=== PATIENT | male | born 1990 | race Caucasian/White ===

== ENCOUNTER 2018-12-03 01:59 | Outpatient (CLI) | payer MEDICAID, SELFPAY ==
[2018-12-03 11:12] LABS: ALT 38 U/L (12-78); AST 18 U/L (15-37); Albumin 4.3 g/dL (3.4-5.0); Alkaline Phosphatase 67 U/L (46-116); Anion Gap 10.7 mmol/L (3-11); BUN 17 mg/dL (7-18); Bilirubin, Total 0.5 mg/dL (0.2-1.0); CO2 29.3 mmol/L (21.0-32.0); CREATININE 0.84 mg/dL (0.70-1.30); Calcium 9.5 mg/dL (8.5-10.1); Chloride 102 mmol/L (98-107); Cholesterol 221 mg/dL (50-200); Glucose 100 mg/dL (70-100); HDL Cholesterol 30 mg/dL (40-60); LDL CHOLESTEROL 116 mg/dL (<100); Sodium 142 mmol/L (136-145); Total Protein 7.4 g/dL (6.4-8.2); Triglyceride 360 mg/dL (30-150)
== END 2018-12-03 02:19 ==
DX: R63.8 Other symptoms and signs concerning food and fluid intake (principal); E78.5 Hyperlipidemia, unspecified; Z00.00 Encounter for general adult medical examination without abnormal findings
CPT/HCPCS: 36415; 80053; 80061; 83721

== ENCOUNTER 2020-04-20 02:59 | Outpatient (CLI) | payer MEDICAID, SELFPAY ==
[2020-04-20 12:49] LABS: ALT 25 U/L (16-63); AST 16 U/L (15-37); Albumin 4.6 g/dL (3.4-5.0); Alkaline Phosphatase 50 U/L (46-116); Anion Gap 11.2 mmol/L (3-11); BUN 15 mg/dL (7-18); Bilirubin, Total 0.4 mg/dL (0.2-1.0); CO2 27.8 mmol/L (21.0-32.0); CREATININE 0.88 mg/dL (0.70-1.30); Calcium 9.6 mg/dL (8.5-10.1); Calculated LDL 107 mg/dL (<100); Chloride 103 mmol/L (98-107); Cholesterol 163 mg/dL (<200); Glucose 88 mg/dL (74-106); HDL Cholesterol 34 mg/dL (40-60); Potassium 3.9 mmol/L (3.5-5.1); Sodium 142 mmol/L (136-145); Total Protein 7.4 g/dL (6.4-8.2); Triglyceride 110 mg/dL (<150)
== END 2020-04-20 03:19 ==
DX: E78.2 Mixed hyperlipidemia (principal); K21.9 Gastro-esophageal reflux disease without esophagitis; Z00.00 Encounter for general adult medical examination without abnormal findings
CPT/HCPCS: 36415; 80053; 80061

== ENCOUNTER 2022-12-27 08:06 | Emergency (ER) | payer SELFPAY ==
[2022-12-27 08:11] VITALS: BP 143/87; PULSE 89; RESP 14; TEMP 36.8; O2SAT 97
--- NOTE | 2022-12-27 08:11 | W.ED.GENAD ---
Discharge Plan Disposition Patient Disposition: Home Condition: Stable Discharge Details Clinical Impression: Acute right flank pain Primary Care Provider: Rustam Diggs ED Provider: Tonny Cadet Home Meds and New Rx's Prescriptions: Continued fluticasone propionate 50 mcg/actuation spray,suspension 2 spray NS DAILY PRN (Reason: nasal congestion) Qty: 1 6RF Rx Instructions: 2 spray per day total, alternating nares 1 spray (left) in AM &1 spray (right) in PM Discharge Instructions Instructions: Flank Pain (ED) Additional Instructions: Please continue to take [id number] ibuprofen 800 mg every 8 hours as needed for discomfort. Monitor symptoms and follow-up with your primary care provider if not fully improving and return to the emergency department for any new or significant worsening of your symptoms. Referrals: Rustam Diggs, TELEMETRY RN [Primary Care Provider] - (As needed for reassessment) Medical Decision Making Patient presenting to the emergency department for chief complaint of right flank pain. Patient reports this is been intermittent over the past 4 to 5 days and was severe this morning. Patient took ibuprofen about an hour prior to arrival and states significant improvement of discomfort. Patient denies any injury or trauma, denies any rotational or pain with movement, denies all other symptoms. Physical exam shows very mild right CVA tenderness otherwise very benign exam. I suspect potential kidney stone versus muscular strain. We will plan on performing CT imaging and labs for rule out of kidney stone. Given that patient states very little pain at this time will hold off on any medications. Review of labs does show a elevated WBC of 12.82, neutrophils and monocytes also elevated. CMP only shows a mildly elevated glucose and total protein. Although the labs are within normal range. Reviewed urinalysis and shows high specific gravity but no blood or signs of infection. Review of CT imaging along with radiologist interpretation shows a right nephrolithiasis but no ureteral stone or hydronephrosis. There is mildly enlarged lymph nodes in the mesenteric which is nonspecific. Patient continues to remain pain-free so we will discharge patient with continued use of NSAIDs as needed for discomfort and follow-up with primary care as needed. After discussion of diagnosis and plan of care patient has no further needs, questions, or concerns and states clear understanding to return to the emergency department for any worsening symptoms. This documentation was generated using [employer] system, please disregard any oddities of phrase or misspellings. Imaging Data Radiologic Study: Attestation: I personally reviewed and interpreted this imaging study as follows: Imaging: CT Scan Radiologist's impression: Exam(s) a CT:CT renal colic wo Exam(s) CT RENAL COLIC WO EXAM: CT RENAL COLIC WO CLINICAL HISTORY: Right flank pain. TECHNIQUE: Imaging Protocol: Axial computed tomography images with coronal and sagittal reformatted images were created and reviewed. COMPARISON: No exams were available for comparison FINDINGS: ABDOMEN: Lung Bases: No acute infiltrate seen in the lung bases. Liver: Normal density. No measurable mass. Gallbladder and biliary tract: No radiodense calculus or biliary ductal dilation. Pancreas: Normal density, no abnormal calcifications or inflammatory process. Spleen: Normal. Kidneys: Normal size, contour and axis.There is a 3 mm nonobstructing stone in the midpole of the right kidney. There is no evidence of a ureteral stone or hydronephrosis. There is a 1.7 x 2.1 cm round homogeneously hypodense lesion in the midpole of the right kidney. It has Hounsfield units of 6. No follow-up is recommended. Adrenal glands: No mass is seen. Lymph nodes: There are mildly enlarged lymph nodes seen in the mesentery. Mild increased attenuation in the mesentery. Abdominal Aorta: Abdominal portion non-dilated. PELVIS: Bladder:Symmetric distention, no gross wall thickening. Bowel: No obstruction or bowel wall thickening. Appendix is unremarkable. Peritoneal cavity: No ascites, collection or mesenteric inflammatory response. No free air. Reproductive organs: Unremarkable as visualized. Bones: Within normal limits. Soft Tissues: There is a small fat containing umbilical hernia. IMPRESSION: 1. Right nephrolithiasis. No ureteral stone or hydronephrosis. 2. Mildly enlarged lymph nodes in the mesentery with mild mesenteric increased attenuation. This is nonspecific but may be seen with mesenteric adenitis. Please correlate clinically. 3. Findings were discussed with Tonny Cadet at 9:18 a.m. on 12/27/2022. Lab Data Lab results reviewed: Yes I reviewed the patient's lab results. Labs: Laboratory Tests Range/Units 12/27/22 12/27/22 12/27/22 08:40 08:44 08:44 WBC (4.4-10.8) 10^3/uL 12.82 H RBC (4.36-5.78) 10^6/uL 5.11 Hgb (13.5-17.5) g/dL 15.7 Hct (40.0-50.0) % 45.8 MCV (80-95) fL 90 MCH (27.0-33.0) pg 30.7 MCHC (32.0-36.0) % 34.3 RDW (11.8-14.1) % 12.1 Plt Count (130-400) 10^3/uL 232 MPV (8.0-11.0) fL 10.1 Immature Gran % 0.4 Neutrophils % 77.6 Lymphocytes % 13.3 Monocytes % 7.6 Eosinophils % 0.8 Basophils % 0.3 Nucleated RBC % (0.0-0.3) % 0.0 Absolute Neutrophils (1.2-6.7) 10^3/uL 9.95 H Absolute Lymphocytes (1.2-3.4) 10^3/uL 1.71 Absolute Monocytes (0.1-0.8) 10^3/uL 0.97 H Absolute Eosinophils (0.0-0.7) 10^3/uL 0.10 Absolute Basophils (0.0-0.2) 10^3/uL 0.04 Sodium (136-145) mmol/L 138 Potassium (3.5-5.1) mmol/L 4.4 Chloride (98-107) mmol/L 102 Carbon Dioxide (21.0-32.0) mmol/L 29.6 Anion Gap (3-11) mmol/L 6.4 BUN (7-18) mg/dL 16 Creatinine (0.70-1.30) mg/dL 0.8 Est GFR (CKD-EPI 2020) (mL/min/1.73m2) 119.84 Glucose (74-106) mg/dL 108 H Calcium (8.5-10.1) mg/dL 9.6 Total Bilirubin (0.2-1.0) mg/dL 0.6 AST (15-37) U/L 17 ALT (16-63) U/L 29 Alkaline Phosphatase (46-116) U/L 63 Total Protein (6.4-8.2) g/dL 8.4 H Albumin (3.4-5.0) g/dL 4.5 Urine Color (Yellow) Yellow Urine Clarity (Clear) Clear Urine pH (5-8) 5.5 Ur Specific [place] (1.005-1.025) >= 1.030 H Urine Protein (Negative) mg/dL Negative Urine Ketones (Negative) mg/dL Negative Urine Blood (Negative) Negative Urine Nitrite (Negative) Negative Urine Bilirubin (Negative) Negative Urine Urobilinogen (Up to 0.2) mg/dL 0.2 Ur Leukocyte Esterase (Negative) Negative Urine Glucose (Negative) mg/dL Negative HPI General Mode of arrival: ambulatory. Date/Time Provider Initiated Documentation: 12/27/22 08:10. Limitations to Documentation: no limitations. Information obtained by: patient and RN notes reviewed. History of Present Illness 32 year old M presents to the emergency department with the chief complaint of Right flank pain, described as moderate and severe, with intensity rated at 10. Quality is described as aching and sharp, and is localized to the back and right. Patient reports no radiation. Patient started experiencing this day(s) (5) and it has been intermittent. No relieving factors improve symptom(s), No exacerbating factors reported . Patient notes no other symptoms.. Patient did receive the following treatments prior to arrival, none Related Data Home Medications Medication Instructions Recorded Confirmed fluticasone propionate 50 2 spray NS DAILY PRN nasal 03/02/20 12/27/22 mcg/actuation nasal congestion ##1 spray,suspension Previous Rx's Medication Instructions Recorded fluticasone propionate 50 2 spray NS DAILY PRN nasal 03/02/20 mcg/actuation nasal congestion ##1 spray,suspension Allergies Allergy/AdvReac Type Severity Reaction Status Date / Time oxycodone Allergy Unknown Verified 12/27/22 08:16 General Stated Complaint: FlankPain LUIS: 3 Review of Systems Constitutional Constitutional: Denies chills, Denies fever(s) and Denies poor appetite ENT Ears, Nose, Mouth, and Throat: Denies neck pain Cardiovascular Cardiovascular: Denies chest pain and Denies dyspnea Respiratory Respiratory: Denies cough and Denies dyspnea Gastrointestinal Gastrointestinal: Reports as per HPI, Denies abdominal pain, Denies melena, Denies change in bowel habits, Denies constipation, Denies diarrhea, Denies nausea and Denies vomiting Genitourinary Genitourinary: Denies hematuria, Denies difficulty urinating, Denies dysuria and Reports flank pain Musculoskeletal Musculoskeletal: Reports back pain and Denies neck pain Integumentary/Breasts Skin/Breast: Denies rash [facility] All Active Problems (Updated 12/27/22 @ 09:30 by Tonny Cadet NP) Acute right flank pain (Acute) Encounter for annual physical exam (Acute) Hyperlipidemia (Chronic) Allergic rhinitis due to allergen (Chronic 10/06/16) Chronic rhinitis (Chronic 08/11/16) Gastroesophageal reflux disease without esophagitis (Chronic 01/23/18) 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 Javier Family History Mother Hyperlipidemia Father Hyperlipidemia Sister No problems noted. Maternal Grandfather Heart disease Hyperlipidemia Paternal Grandfather Heart disease Maternal Grandmother , 50 Stroke Paternal Grandmother No problems noted. Son No problems noted. Daughter No problems noted. Daughter No problems noted. Sister No problems noted. Social History Smoking/Tobacco Use Status: Never Second Hand Exposure: No Smoking risk assessment performed?: Yes Alcohol Intake: never Drug use: Never Substance use type: does not use Caregiver/Support person: No Housing: house Communication Needs: None Do you need help understanding health information?: Never Pets and animals: No Sexually active: Yes Do you think of yourself as: straight/heterosexual Current gender identity: male What is your relationship status?: How often do you talk on the phone with friends or family?: once per week How often do you get together with friends or relatives?: once per week How often do you attend mandaeism or pentecostal services?: 1-3 times per year Do you belong to any clubs or organized social groups?: no Panel score (0-1 are the most socially isolated patients): 0 What type of physical activity do you participate in: none and other Details: Work Duration: 15-30 minutes/day Frequency: 5-6 times per week Edith/Anglican: Evangelical Special edith needs: No Seatbelt use: always Helmet use: Yes Drive intox or ride w/intox dinkey driver: No Do you feel safe at home: Yes Do you feel safe in your relationship?: Yes Exam Const General: cooperative Orientation: alert, awake and oriented x3 Resp Effort & Inspection: normal respiratory effort and able to speak in complete sentences Auscultation: clear to auscultation bilaterally Cardio Rate: regular rate Rhythm: regular rhythm Heart Sounds: S1 normal and S2 normal General: CVA tenderness on the right (mild right) Back/Spine/Pelvis Back: CVA tenderness Thoracic/Lumbar Spine: thoracic and lumbar spine normal to inspection, No pain with thoraco-lumbar ROM, No paraspinal tenderness, No thoraco-lumbar ROM limited, No thoracic spinal tenderness and No lumbar spinal tenderness Neuro General: patient alert, patient awake, patient oriented x3, gait normal and moves all extremities
[2022-12-27 08:52] LABS: Abs Immature Grans 0.05 10^3/uL (0.0-0.06); Absolute Basophil Count 0.04 10^3/uL (0.0-0.2); Absolute Lymphocyte Count 1.71 10^3/uL (1.2-3.4); Absolute Monocyte Count 0.97 10^3/uL (0.1-0.8); Absolute Neutrophil Count 9.95 10^3/uL (1.2-6.7); Basophils % 0.3; Eosinophils % 0.8; HCT 45.8 % (40.0-50.0); HGB 15.7 g/dL (13.5-17.5); Immature Grans % 0.4; Lymphocytes % 13.3; MCH 30.7 pg (27.0-33.0); MCHC 34.3 % (32.0-36.0); MCV 90 fL (80-95); MPV 10.1 fL (8.0-11.0); Monocytes % 7.6; Neutrophils % 77.6; Platelet Count 232 10^3/uL (130-400); RBC 5.11 10^6/uL (4.36-5.78); RDW 12.1 % (11.8-14.1); RDW-SD 39.7 fL; WBC 12.82 10^3/uL (4.4-10.8)
[2022-12-27 08:54] LABS: Bilirubin Negative (Negative); Blood Negative (Negative); Clarity Clear (Clear); Glucose Negative (Negative); Ketones Negative (Negative); Leukocyte Esterase Negative (Negative); Nitrite Negative (Negative); Specific Gravity >= 1.030 (1.005-1.025); Urobilinogen 0.2 mg/dL (Up to 0.2); pH 5.5 (5-8)
--- NOTE | 2022-12-27 08:58 | DI.CT_ITS ---
Exam(s) CT RENAL COLIC WO EXAM: CT RENAL COLIC WO CLINICAL HISTORY: Right flank pain. TECHNIQUE: Imaging Protocol: Axial computed tomography images with coronal and sagittal reformatted images were created and reviewed. COMPARISON: No exams were available for comparison FINDINGS: ABDOMEN: Lung Bases: No acute infiltrate seen in the lung bases. Liver: Normal density. No measurable mass. Gallbladder and biliary tract: No radiodense calculus or biliary ductal dilation. Pancreas: Normal density, no abnormal calcifications or inflammatory process. Spleen: Normal. Kidneys: Normal size, contour and axis.There is a 3 mm nonobstructing stone in the midpole of the rig ht kidney. There is no evidence of a ureteral stone or hydronephrosis. There is a 1.7 x 2.1 cm roun d homogeneously hypodense lesion in the midpole of the right kidney. It has Hounsfield units of 6. No follow-up is recommended. Adrenal glands: No mass is seen. Lymph nodes: There are mildly enlarged lymph nodes seen in the mesentery. Mild increased attenuation in the mesentery. Abdominal Aorta: Abdominal portion non-dilated. PELVIS: Bladder:Symmetric distention, no gross wall thickening. Bowel: No obstruction or bowel wall thickening. Appendix is unremarkable. Peritoneal cavity: No ascites, collection or mesenteric inflammatory response. No free air. Reproductive organs: Unremarkable as visualized. Bones: Within normal limits. Soft Tissues: There is a small fat containing umbilical hernia. IMPRESSION: 1. Right nephrolithiasis. No ureteral stone or hydronephrosis. 2. Mildly enlarged lymph nodes in the mesentery with mild mesenteric increased attenuation. This is nonspecific but may be seen with mesenteric adenitis. Please correlate clinically. 3. Findings were discussed with Tonny Cadet at 9:18 a.m. on 12/27/2022. RADIATION DOSE DELIVERED: 892.2mGy.cm Total DLP DATA REPOSITORY: All CT scans at this facility are submitted to the National Radiology Data Registry (NRDR) Dose Index Registry (DIR) with the [employer] (ACR). RADIATION OPTIMIZATION: All CT scans at this facility use at least one of these dose optimization te chniques: automated exposure control; mA and/or kV adjustment per patient size (includes targeted exa ms where dose is matched to clinical indication); or iterative reconstruction.
[2022-12-27 09:02] LABS: ALT 29 U/L (16-63); AST 17 U/L (15-37); Albumin 4.5 g/dL (3.4-5.0); Alkaline Phosphatase 63 U/L (46-116); Anion Gap 6.4 mmol/L (3-11); BUN 16 mg/dL (7-18); Bilirubin, Total 0.6 mg/dL (0.2-1.0); CO2 29.6 mmol/L (21.0-32.0); CREATININE 0.8 mg/dL (0.70-1.30); Calcium 9.6 mg/dL (8.5-10.1); Chloride 102 mmol/L (98-107); Estimated GFR 119.84 (mL/min/1.73m2); Glucose 108 mg/dL (74-106); Potassium 4.4 mmol/L (3.5-5.1); Sodium 138 mmol/L (136-145); Total Protein 8.4 g/dL (6.4-8.2)
[2022-12-27 09:31] VITALS: BP 144/84; PULSE 88; RESP 14; O2SAT 98
== END 2022-12-27 09:37 | disposition home or self-care (01) ==
PROVIDERS: Emergency Provider Nurse Practitioner Family; PCP Nurse Practitioner Family
DX: R10.9 Unspecified abdominal pain (principal); N20.0 Calculus of kidney; R59.9 Enlarged lymph nodes, unspecified; D72.829 Elevated white blood cell count, unspecified; R73.9 Hyperglycemia, unspecified; R79.82 Elevated C-reactive protein (CRP); D72.821 Monocytosis (symptomatic)
CPT/HCPCS: 36415; 80053; 99284; 74176; 81003; 85025; 99283

== ENCOUNTER 2023-11-07 10:44 | Emergency (ER) | payer SELFPAY ==
[2023-11-07 10:47] VITALS: BP 147/92; PULSE 97; RESP 16; TEMP 37.1; O2SAT 99
--- NOTE | 2023-11-07 10:57 | ED.GENADUL_ITS ---
Discharge Plan Disposition Patient Disposition: Home Condition: Stable Discharge Details Clinical Impression: Laceration of finger Primary Care Provider: Unknown,Unknown ED Provider: Luz Elena Lemus Home Meds and New Rx's Prescriptions: New cephalexin 500 mg capsule 500 mg PO QID Qty: 20 0RF Continued fluticasone propionate 50 mcg/actuation spray,suspension 2 spray NS DAILY PRN (Reason: nasal congestion) Qty: 1 6RF Rx Instructions: 2 spray per day total, alternating nares 1 spray (left) in AM &1 spray (right) in PM Discharge Instructions Instructions: Finger Laceration (ED) Additional Instructions: keep dressing clean and dry for next 2-3 days, then can remove and wash wound daily with warm soapy water rinse well gently pat dry. Can apply thin layer of antibiotic ointment and dry dressing to protect. Monitor for and report signs of infection immediately including fever redness drainage increased pain Can use [id number] pain medication such as ibuprofen and/or acetaminophen as directed if needed for pain Return to the emergency department in 7 to 10 days for suture removal Your tetanus has been updated. You will also be given a prescription of antibiotics for infection prevention Referrals: Unknown,Unknown [Primary Care Provider] - (return to the ED for suture removal in 7-10 days) HPI General Mode of arrival: ambulatory . Date/Time Provider Initiated Documentation: 11/07/23 10:57 . Limitations to Documentation: no limitations . Information obtained by: patient . HPI Narrative: 3 cm laceration to index finger on a sharp knife. Bleeding controlled on arrival with pressure dressing. No other injury. No numbness or tingling distally. Full range of motion and strength. Related Data Home Medications Medication Instructions Recorded Confirmed fluticasone propionate 50 2 spray NS DAILY PRN nasal 03/02/20 11/07/23 mcg/actuation nasal congestion ##1 spray,suspension cephalexin 500 mg capsule 500 mg PO QID #20 caps 11/07/23 Previous Rx's Medication Instructions Recorded fluticasone propionate 50 2 spray NS DAILY PRN nasal 03/02/20 mcg/actuation nasal congestion ##1 spray,suspension cephalexin 500 mg capsule 500 mg PO QID #20 caps 11/07/23 Allergies Allergy/AdvReac Type Severity Reaction Status Date / Time oxycodone Allergy Unknown GI Bleeding Verified 11/07/23 10:50 General Stated Complaint: Laceration LUIS: 4 Review of Systems All systems reviewed & are unremarkable except as noted in HPI and below Exam Const General: cooperative, healthy appearing, comfortable and no acute distress Nutritional Appearance: average body habitus Orientation: alert, awake and oriented x3 HENMT Head: normal to inspection, normocephalic and atraumatic Face and sinus: normal facial exam Mouth: oral mucosae normal Resp Effort & Inspection: normal respiratory effort Cardio Rate: regular rate Rhythm: regular rhythm and other (Strong radial pulse) Skin Trauma: laceration (Index finger, well-approximated approximately 3 cm) Course Vital Signs Vital signs: Vital Signs Temperature 37.1 C 11/07/23 10:47 Pulse 97 H 11/07/23 10:47 Respiratory Rate 16 11/07/23 10:47 Blood Pressure 147/92 H 11/07/23 10:47 Pulse Oximetry 99 11/07/23 10:47 Temperature 37.1 C 11/07/23 10:47 Temperature Source Temporal Artery Scan 11/07/23 10:47 Pulse 97 H 11/07/23 10:47 Respiratory Rate 16 11/07/23 10:47 Respiratory Effort Normal 11/07/23 10:55 Blood Pressure 147/92 H 11/07/23 10:47 Pulse Oximetry 99 11/07/23 10:47 Oxygen Delivery Method Room Air 11/07/23 10:47 Oxygen Flow Rate 0 11/07/23 10:47 Procedures Laceration Laceration 1: Site: hand (index finger) Size (cm): 3 Description: linear and clean Depth: simple, single layer Local Anesthetic: Lidocaine 1% Amount of anesthesia used (mL): 3 Pre-repair: wound explored, irrigated extensively and deep structures intact Skin layer closed with: nylon Size (cm): 4-0 Number of sutures: 6 Technique: simple, interrupted Medical Decision Making isolate laceration to left index finger approx 3 cm, linear, full range of motion, strength and sensation to finger. wound irrigated with copious amounts sterile water after digital block which patient tolerated well. tetanus updated wound repaired using 4-0 ethilon, interrupted sutures after wound bed explored, no foreign body, well approximates. 6 sutures total. bacitracin, dry dressing and finger splint applied. cephalexin for prophylaxis Medical Records Medical records reviewed: Yes I reviewed the patient's medical records. 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 Javier Family History Mother Hyperlipidemia Father Hyperlipidemia Sister No problems noted. Maternal Grandfather Heart disease Hyperlipidemia Paternal Grandfather Heart disease Maternal Grandmother , 50 Stroke Paternal Grandmother No problems noted. Son No problems noted. Daughter No problems noted. Daughter No problems noted. Sister No problems noted. Social History Smoking/Tobacco Use Status: Never Second Hand Exposure: No Smoking risk assessment performed?: Yes Alcohol Intake: never Drug use: Never Substance use type: does not use Caregiver/Support person: No Housing: house Communication Needs: None Do you need help understanding health information?: Never Pets and animals: No Sexually active: Yes Do you think of yourself as: straight/heterosexual Current gender identity: male What is your relationship status?: How often do you talk on the phone with friends or family?: once per week How often do you get together with friends or relatives?: once per week How often do you attend spiritism or catholic services?: 1-3 times per year Do you belong to any clubs or organized social groups?: no Panel score (0-1 are the most socially isolated patients): 0 What type of physical activity do you participate in: none and other Details: Work Duration: 15-30 minutes/day Frequency: 5-6 times per week Edith/Confucianism: Roman Catholic Special edith needs: No Seatbelt use: always Helmet use: Yes Drive intox or ride w/intox hydraulic lift driver: No Do you feel safe at home: Yes Do you feel safe in your relationship?: Yes
[2023-11-07] MEDS: Tetanus & Diphtheria Tox,ADULT 0.5 ML VIAL IM (11:47)
== END 2023-11-07 11:56 | disposition home or self-care (01) ==
PROVIDERS: Emergency Provider Nurse Practitioner Acute Care
DX: S61.211A Laceration without foreign body of left index finger without damage to nail, initial encounter (principal); W26.0XXA Contact with knife, initial encounter
CPT/HCPCS: 12002; 90471; 90714

== ENCOUNTER 2025-08-26 02:07 | Emergency (ER) | payer SELFPAY ==
[2025-08-26] VITALS (28 sets, daily range): BP systolic 128–184; BP diastolic 69–132; PULSE 68–94; RESP 13–22; TEMP 36.5; O2SAT 95–100
--- NOTE | 2025-08-26 02:15 | DI.CT_ITS ---
Exam(s) CT ABDOMEN PELVIS WO EXAM: CT ABDOMEN PELVIS WO CLINICAL HISTORY: right flank pain, eval for stone/appe. TECHNIQUE: Imaging Protocol: Axial computed tomography images with coronal and sagittal reformatted images were created and reviewed. COMPARISON: CT CT RENAL COLIC WO from 12/27/2022 FINDINGS: ABDOMEN: Lung Bases: Normal where visualized. Liver: Normal density. No measurable mass. Gallbladder and biliary tract: No radiodense calculus or biliary ductal dilation. Pancreas: Normal density, no abnormal calcifications or inflammatory process. Spleen: Normal. Kidneys: Normal size, contour and axis.There is a 4 mm calcification proximal to the right UVJ causing mild hydronephrosis. There is again seen a right renal cyst. No follow-up is recommended. Adrenal glands: No mass is seen. Lymph nodes: Within normal limits. Abdominal Aorta: Abdominal portion non-dilated. PELVIS: Bladder:Symmetric distention, no gross wall thickening. Bowel: No obstruction or bowel wall thickening. Appendix is unremarkable. Peritoneal cavity: No ascites, collection or mesenteric inflammatory response. No free air. Stable mild haziness in the mesenteric fat. This likely reflects a benign etiology. Reproductive organs: Unremarkable as visualized. Bones: Within normal limits. There is unilateral left spondylolysis at L5 without spondylolisthesis. Soft Tissues: There is a small fat containing umbilical hernia. IMPRESSION: 1. There is a 4 mm distal right ureteral calculus causing mild hydronephrosis. 2. There is no evidence of appendicitis. 3. The preliminary [facility] report was reviewed. RADIATION DOSE DELIVERED: 532.53mGy.cm Total DLP DATA REPOSITORY: All CT scans at this facility are submitted to the National Radiology Data Registry (NRDR) Dose Index Registry (DIR) with the [employer] (ACR). RADIATION OPTIMIZATION: All CT scans at this facility use at least one of these dose optimization techniques: automated exposure control; mA and/or kV adjustment per patient size (includes targeted exams where dose is matched to clinical indication); or iterative reconstruction.
--- NOTE | 2025-08-26 02:20 | W.ED.GENAD ---
Discharge Plan Disposition Patient Disposition: Home Condition: Good Discharge Details Clinical Impression: Kidney stone on right side Primary Care Provider: Unknown,Unknown ED Provider: Foreign Umanzor Home Meds and New Rx's Prescriptions: New tamsulosin 0.4 mg capsule 0.4 mg PO DAILY Qty: 7 0RF ketorolac 10 mg tablet 10 mg PO TID 5 Days Qty: 15 0RF No Action fluticasone propionate 50 mcg/actuation spray,suspension 2 spray NS DAILY PRN (Reason: nasal congestion) Qty: 1 6RF Rx Instructions: 2 spray per day total, alternating nares 1 spray (left) in AM &1 spray (right) in PM Discharge Instructions Instructions: Kidney Stone, Adult ED Additional Instructions: At this time you have a 5 mm kidney stone on the right-hand side. This is almost completely passed, and hopefully it show complete its passage within the next 24 to 48 hours. Please take the tamsulosin/Flomax as prescribed. Please drink plenty of fluids and make sure to include lemon juice with each glass of water. Avoid salts and meats for the time being. Please take the Zofran as needed for nausea and the morphine as needed for pain. Please strain your urine to collect the stone. Once you have collected the stone please follow-up with urology for stone analysis. If you notice any worsening of your symptoms, or any new symptoms such as vomiting, diarrhea, fever, chills, shortness of breath, chest pain, numbness, weakness, or fainting , please return immediately to the emergency department for reevaluation. Please follow up with your primary care provider as soon as possible for reassessment and reevaluation. As always, it was a pleasure participating in your medical care today. Stand Alone Forms: [facility] Prescribed Opioid Consent, Portal Information Referrals: Dangelo Hernandez MD [ [facility] STAFF PHYSICIAN, Urology] HPI General Date/Time Provider Initiated Documentation: 08/26/25 02:08. HPI Narrative: This is a pleasant 34-year-old male with no significant past medical history who presents today for evaluation of right flank pain. Symptoms began 2 hours ago at midnight. It was sharp in onset, radiates from the right flank, and then over the last hour or so it has radiated down to the right groin. He admits to nausea but denies vomiting. He denies any urinary symptoms of dysuria or hematuria. He admits to a family history of kidney stones but no personal history. No chest pain or shortness of breath. No fever or chills. No other complaints at this time. Related Data Home Medications ?Medication ?Instructions ?Recorded ?Confirmed fluticasone propionate 50 2 spray NS DAILY PRN nasal 03/02/20 08/26/25 mcg/actuation nasal congestion ##1 spray,suspension ketorolac 10 mg tablet 10 mg PO TID 5 days #15 tabs 08/26/25 tamsulosin 0.4 mg capsule 0.4 mg PO DAILY #7 caps 08/26/25 Previous Rx's ?Medication ?Instructions ?Recorded fluticasone propionate 50 2 spray NS DAILY PRN nasal 03/02/20 mcg/actuation nasal congestion ##1 spray,suspension ketorolac 10 mg tablet 10 mg PO TID 5 days #15 tabs 08/26/25 tamsulosin 0.4 mg capsule 0.4 mg PO DAILY #7 caps 08/26/25 Allergies Allergy/AdvReac Type Severity Reaction Status Date / Time oxycodone Allergy Unknown GI Bleeding Verified 08/26/25 02:18 General Stated Complaint: FlankPain LUIS: 3 Exam Narrative Exam Narrative: 1.Const: Well-nourished, Well-developed, appearing stated age 2.Eyes: PERRL, no conjunctival injection, and symmetrical lids. 3.ENT: Atraumatic external nose and ears. Moist MM. Neck: Symmetric, trachea midline, No thyromegaly. 4.CVS: +S1/S2, Peripheral pulses 2+ and equal in all extremities. Brisk capillary refill in all extremities. 5.RESP: Unlabored respiratory effort. Clear to auscultation bilaterally. No wheezes rales or rhonchi 6.GI: Soft, Nontender/Nondistended, No hepatosplenomegaly. No guarding or rebound. No pain at McBurney's point, negative Edwards sign. No flank or CVA tenderness on percussion. 7.MSK: Normocephalic/Atraumatic, Extremities w/o deformity or ttp No cyanosis or clubbing, Normal movement of all extremities 8.Skin: Warm, Dry. No rashes or lesions. 9.Neuro: pelt shearer II-XII grossly intact. Sensation grossly intact, no focal neurologic deficits. 10.Psych: (AAO) x3. Appropriate mood and affect Course Vital Signs Vital signs: Vital Signs Temperature 36.5 C 08/26/25 02:10 Pulse 85 08/26/25 02:10 Respiratory Rate 16 08/26/25 02:10 Blood Pressure 168/111 H 08/26/25 02:10 Pulse Oximetry 100 08/26/25 02:10 Temperature 36.5 C 08/26/25 02:15 Temperature Source Oral 08/26/25 02:15 Pulse 85 08/26/25 02:15 Respiratory Rate 16 08/26/25 02:15 Blood Pressure 168/111 H 08/26/25 02:15 Blood Pressure Position Sitting 08/26/25 02:15 Pulse Oximetry 100 08/26/25 02:15 Oxygen Delivery Method Room Air 08/26/25 02:15 Oxygen Flow Rate 0 08/26/25 02:15 Pain Level 7 08/26/25 02:15 Medical Decision Making This is a pleasant 34-year-old male with no significant past medical history who presents today for evaluation of right flank pain. Symptoms began 2 hours ago at midnight. It was sharp in onset, radiates from the right flank, and then over the last hour or so it has radiated down to the right groin. He admits to nausea but denies vomiting. He denies any urinary symptoms of dysuria or hematuria. He admits to a family history of kidney stones but no personal history. No chest pain or shortness of breath. No fever or chills. No other complaints at this time. Exam demonstrates well-appearing male, no reproducible abdominal tenderness, no pain at McBurney's point. No flank or CVA tenderness. Differential is high for urolithiasis. Genital exam was performed and shows no evidence of testicular torsion. Testicles demonstrate normal lie, normal cremasteric reflex, no severe testicular tenderness swelling or edema. Will get CT imaging to evaluate for kidney stone, check UA, give Toradol Heron Mab fluids and Flomax, monitor closely and reassess. 4:34 AM Laboratory workup has returned, no white count or bandemia, urinalysis shows no infection, renal function demonstrates a creatinine of 1.17, GFR 70. No fulminant renal failure. Urinalysis shows no evidence of nitrites leuk esterase or WBCs. CT scan shows mild right hydroureteronephrosis and a 5 mm kidney stone in the distal right ureter. On reassessment patient's pain is notably improved. He feels well and he feels comfortable going home. With no evidence of infection, renal failure, or vomiting I do not see an indication for emergent stenting or admission. Patient will be given prescription for Flomax, few tablets of morphine IR for breakthrough pain control, Toradol, and Zofran. Will give strainer for home use. Will place referral for follow-up with Dr. Hernandez. Patient is otherwise stable for discharge at this time. Of note the patient does have some debbie mesentery with some prominent mesenteric lymph nodes which appear to be stable and unchanged. No acute pathology otherwise. Patient stable for discharge. I have extensively reviewed the treatment plan and discharge instructions with the patient and their family. I have addressed all patient concerns at this time. The patient and family was made aware of what symptoms to monitor for that would warrant a return to the emergency department. Discussed the plan with the patient and family, they demonstrate verbal understanding and agreement with our assessment and plan at this time. The documentation in this chart was dictated using [employer] dictation software. Please excuse any dictation errors. 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 Javier Family History Mother Hyperlipidemia Father Hyperlipidemia Sister No problems noted. Maternal Grandfather Heart disease Hyperlipidemia Paternal Grandfather Heart disease Maternal Grandmother , 50 Stroke Paternal Grandmother No problems noted. Son No problems noted. Daughter No problems noted. Daughter No problems noted. Sister No problems noted. Social History Smoking/Tobacco Use Status: Never Second Hand Exposure: No Smoking risk assessment performed?: Yes Alcohol Intake: never Drug use: Never Substance use type: does not use Caregiver/Support person: No Housing: house Communication Needs: None Do you need help understanding health information?: Never Pets and animals: No Sexually active: Yes Do you think of yourself as: straight/heterosexual Current gender identity: male What is your relationship status?: How often do you talk on the phone with friends or family?: once per week How often do you get together with friends or relatives?: once per week How often do you attend hoahaoism or tenriism services?: 1-3 times per year Do you belong to any clubs or organized social groups?: no Panel score (0-1 are the most socially isolated patients): 0 What type of physical activity do you participate in: none and other Details: Work Duration: 15-30 minutes/day Frequency: 5-6 times per week Edith/Amish: Episcopal Special edith needs: No Seatbelt use: always Helmet use: Yes Drive intox or ride w/intox [employer] truck driver: No Do you feel safe at home: Yes Do you feel safe in your relationship?: Yes
[2025-08-26] MEDS: ACETAMINOPHEN 1,000 MG/100 ML BAG 400 MG IVPB (02:29)
[2025-08-26] MEDS: Ondansetron 4 MG/2 ML VIAL IVP (02:30)
[2025-08-26] MEDS: Tamsulosin 0.4 MG CAPCR PO (02:30)
[2025-08-26] MEDS: Normal Saline 1,000 ML 1000 ML IV (02:30)
[2025-08-26] MEDS: Ketorolac 15 MG/ML VIAL IVP (02:30)
[2025-08-26 02:47] LABS: Abs Immature Grans 0.02 10^3/uL (0.0-0.06); HCT 39.3 % (40.0-50.0); HGB 13.5 g/dL (13.5-17.5); Immature Grans % 0.3 %; MCH 30.6 pg (27.0-33.0); MCHC 34.4 % (32.0-36.0); MCV 89 fL (80-95); MPV 10.3 fL (8.0-11.0); Platelet Count 152 10^3/uL (130-400); RBC 4.41 10^6/uL (4.36-5.78); RDW 11.4 % (11.8-14.1); RDW-SD 36.7 fL; WBC 6.21 10^3/uL (4.4-10.8)
[2025-08-26 02:56] LABS: ALT 17 U/L (10-49); AST 20 U/L (<34); Albumin 4.4 g/dL (3.2-5.0); Alkaline Phosphatase 58 U/L (46-116); Anion Gap 8.6 mmol/L (3-11); BUN 14 mg/dL (9-23); Bilirubin, Total 0.4 mg/dL (0.2-1.2); CO2 27.4 mmol/L (20.0-31.0); Calcium 9.1 mg/dL (8.3-10.6); Chloride 105 mmol/L (98-107); Glucose 116 mg/dL (74-106); Potassium 3.8 mmol/L (3.5-5.1); Sodium 141 mmol/L (136-145); Total Protein 7.3 g/dL (5.7-8.2)
[2025-08-26] MEDS: Metoclopramide 10 MG/2 ML VIAL IVP (03:20)
[2025-08-26] MEDS: MORPHine 10 MG/ML VIAL 2 MG IVP ×2 (03:20→04:41)
[2025-08-26 03:32] LABS: Glucose Negative (Negative)
[2025-08-26 03:39] LABS: C & S Indicated? No; RBC 0-2 HPF (0-2); WBC Negative HPF (0-5)
--- NOTE | 2025-08-26 04:20 | DI.VRAD_ITS ---
PROCEDURE INFORMATION: Exam: CT Abdomen And Pelvis Without Contrast Exam date and time: 08/26/2025 2:42 AM Age: 34 years old Clinical indication: Other: R flank; Right flank pain, eval for stone/appe TECHNIQUE: Imaging protocol: Computed tomography of the abdomen and pelvis without contrast. Radiation optimization: All CT scans at this facility use at least one of these dose optimization techniques: automated exposure control; mA and/or kV adjustment per patient size (includes targeted exams where dose is matched to clinical indication); or iterative reconstruction. COMPARISON: CT RENAL COLIC WO 12/27/2022 8:58 AM FINDINGS: Lungs: Minimal dependent hypoventilatory changes. Minimal linear presumed scarring again noted in the lingula. No pleural effusions. Liver: Unremarkable. Gallbladder and biliary ducts: Unremarkable. No calcified gallstones. No intrahepatic or extrahepatic biliary ductal dilation. Pancreas: Unremarkable. Spleen: Unremarkable. The spleen is normal in size. Adrenal glands: Unremarkable. Kidneys and ureters: There is mild right hydroureteronephrosis secondary to an obstructing 5 mm calculus in the distal right ureter (series 2, image 381). Mild right perinephric fat stranding is consistent with acute obstructive uropathy. No calculi are identified in the kidneys or in the left ureter. The left renal collecting system and left ureter are normal in caliber. There is a 2.3 cm cyst in the medial lower pole of the right kidney which measures simple fluid attenuation. Stomach and bowel: Unremarkable. The stomach is nondilated. The small and large bowel are normal in caliber. Appendix: No findings to suggest appendicitis. Intraperitoneal space: No ascites, fluid collection, or pneumoperitoneum. Again noted is haziness of the mesenteric fat in the left upper quadrant and left mid abdomen, not significantly changed since 12/27/2022. Retroperitoneal space: No retroperitoneal collection or mass. Vasculature: Unremarkable. The abdominal aorta is normal in caliber. Lymph nodes: Again noted are several slightly prominent (though not pathologically enlarged) mesenteric lymph nodes in the left upper quadrant and left mid abdomen with mild haziness of the surrounding mesenteric fat. No pathologically enlarged lymph nodes are identified in the abdomen or in the pelvis. Urinary bladder: Unremarkable. No calculi. Reproductive: Unremarkable as visualized. Bones/joints: Mild degenerative changes. 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 No suspicious osseous lesions. Soft tissues: Tiny fat-containing umbilical hernia. IMPRESSION: 1. Mild right hydroureteronephrosis secondary to an obstructing 5 mm calculus in the distal right ureter. 2. Dominique mesentery with a few slightly prominent mesenteric lymph nodes again noted in the left midabdomen. This appearance is nonspecific though most typically seen with an underlying regional inflammatory process, such as mesenteric panniculitis. Stability since 12/27/2022 supports a benign etiology. Dictated and Authenticated by: Lesley Downs MD. Orderin Noé Carrasquillo MD
[2025-08-26] MEDS: Ondansetron O.D.T. 4 MG TABEF, 3 TABS/BTL PO (04:41)
[2025-08-26] MEDS: MORPHine IR 15 MG TAB, 4 TABS/BTL PO (04:42)
== END 2025-08-26 04:52 | disposition home or self-care (01) ==
PROVIDERS: Emergency Provider Student in an Organized Health Care Education/Training Program
DX: N13.2 Hydronephrosis with renal and ureteral calculous obstruction (principal)
CPT/HCPCS: 36415; 80053; 96361; 96365; 96375; 96376; 99285; 74176; 81003; 81015; 85025; J0131; J1885; J2270; J2405; J2765